=== PATIENT | female | born 1985 | race Caucasian/White ===

== ENCOUNTER 2018-12-25 04:21 | Emergency (ER) | payer OTHER ==
[~2018-12-25] VITALS: Ht 160 cm; Wt 86.2 kg
[~2018-12-25 04:21] MED LIST: NO TOMA MED.; PHENABID TAB1 TAB.SA
== END 2018-12-25 11:14 | disposition home or self-care (01) ==
LOC: ER 04:21
DX: K29.70 Gastritis, unspecified, without bleeding (principal); E86.0 Dehydration

== ENCOUNTER 2019-08-02 20:45 | Emergency (ER) | payer OTHER ==
[~2019-08-02] VITALS: Ht 160 cm; Wt 86.2 kg
[2019-08-03] MEDS ORDERED: DOLOGESIC 500-1 EACH PO (02:50)
== END 2019-08-03 03:11 | disposition home or self-care (01) ==
LOC: ER 20:45
DX: R20.2 Paresthesia of skin (principal); R51 Headache

== ENCOUNTER 2019-08-04 16:46 | Emergency (ER) | payer OTHER ==
[~2019-08-04] VITALS: Ht 160 cm; Wt 86.2 kg
[~2019-08-04 16:46] MED LIST changes: +DOLOGESIC 500-1 EACH PO
== END 2019-08-04 19:25 | disposition home or self-care (01) ==
LOC: ER 16:46
DX: R25.1 Tremor, unspecified (principal); R51 Headache; F06.4 Anxiety disorder due to known physiological condition

== ENCOUNTER 2019-10-15 17:03 | Emergency (ER) | payer OTHER ==
[~2019-10-15] VITALS: Ht 160 cm; Wt 86.2 kg
[2019-10-15] MEDS ORDERED: VISTARIL25 MG (17:22)
[2019-10-15] MEDS ORDERED: TOPROL XL25 M1 (17:22)
== END 2019-10-15 20:38 | disposition home or self-care (01) ==
LOC: ER 17:03
DX: M62.838 Other muscle spasm (principal)

== ENCOUNTER 2022-09-11 17:34 | Emergency (ER) | payer OTHER ==
[~2022-09-11] VITALS: Ht 160 cm; Wt 92.5 kg
[~2022-09-11 17:34] MED LIST changes: +TOPROL XL25 M1; +VISTARIL25 MG
== END 2022-09-11 21:42 | disposition home or self-care (01) ==
LOC: ER 17:34
DX: K21.9 Gastro-esophageal reflux disease without esophagitis (principal); K29.70 Gastritis, unspecified, without bleeding; Z88.0 Allergy status to penicillin; Z20.822 Contact with and (suspected) exposure to COVID-19

== ENCOUNTER 2022-09-15 07:21 | Emergency (ER) | payer OTHER ==
[~2022-09-15] VITALS: Ht 160 cm; Wt 92.5 kg
== END 2022-09-15 14:37 | disposition home or self-care (01) ==
LOC: ER 07:21
DX: R10.9 Unspecified abdominal pain (principal); Z88.0 Allergy status to penicillin; I10 Essential (primary) hypertension; K80.20 Calculus of gallbladder without cholecystitis without obstruction; K76.0 Fatty (change of) liver, not elsewhere classified

== ENCOUNTER 2022-11-03 10:41 | Outpatient (CLI) | payer OTHER | END 2022-11-03 10:42 | disposition home or self-care (01) | LOC: LAB 10:41 | DX: Z01.811 Encounter for preprocedural respiratory examination (principal); E66.01 Morbid (severe) obesity due to excess calories ==

== ENCOUNTER 2022-12-03 21:40 | Inpatient (IN) | payer OTHER ==
[~2022-12-03] VITALS: Ht 160 cm; Wt 94.8 kg
[2022-12-03] MEDS ORDERED: SPRINTEC 28 DA1 EACH PO (22:49)
[2022-12-03] MEDS ORDERED: HYOSCYAMINE0.125 MG PO (22:49)
== END 2022-12-06 11:26 | disposition home or self-care (01) | DRG 419 ==
LOC: ER 21:40 → SURH 12-04 14:17
PROVIDERS: Surgery; ADMIT Internal Medicine; ATTEND Internal Medicine
PROC: BF37ZZZ Magnetic Resonance Imaging (MRI) of Pancreas (ICD-10-PCS; 2022-12-04)
PROC: BW40ZZZ Ultrasonography of Abdomen (ICD-10-PCS; 2022-12-04)
PROC: 0FT44ZZ Resection of Gallbladder, Percutaneous Endoscopic Approach (ICD-10-PCS; principal; 2022-12-05 14:00)
DX: K80.62 Calculus of gallbladder and bile duct with acute cholecystitis without obstruction (principal)

== ENCOUNTER 2023-03-15 15:12 | Emergency (ER) | payer OTHER ==
[~2023-03-15] VITALS: Ht 160 cm; Wt 94.8 kg
[~2023-03-15 15:12] MED LIST changes: +HYOSCYAMINE0.125 MG PO; +SPRINTEC 28 DA1 EACH PO
[2023-03-15] MEDS ORDERED: LEXAPRO5 MG (15:56)
== END 2023-03-15 18:04 | disposition home or self-care (01) ==
LOC: ER 15:12
DX: M54.89 Other dorsalgia (principal); Z20.822 Contact with and (suspected) exposure to COVID-19; Z88.0 Allergy status to penicillin

== ENCOUNTER 2024-11-26 15:32 | Emergency (ER) | payer OTHER ==
[~2024-11-26] VITALS: Ht 162.6 cm; Wt 63.5 kg
[~2024-11-26 15:32] MED LIST changes: +LEXAPRO5 MG
[2024-11-26] MEDS ORDERED: LACTOBACILLUS ACIDOPHILUS 1 CAP CAP PO STA (16:37)
[2024-11-26] MEDS ORDERED: LACTOBACILLUS ACIDOPHILUS 1 CAP CAP PO ONE (16:46)
[2024-11-26 16:54] LABS: HEMATOCRIT 42.2 % (36.0-45.00); HEMOGLOBIN 14.1 g/dL (12.0-15.00); MEAN CELL VOLUME 92.9 fL (80.00-100.00); MEAN CORPUSCULAR HEMOGLOBIN 31.1 pg (27.00-32.0); MEAN CORPUSCULAR HGB CONC 33.5 g/dl (32.0-36.0); PLATELET COUNT 207 K/uL (150-450); RED BLOOD COUNT 4.54 M/uL (4.00-6.00); RED CELL DISTRIBUTION WIDTH 12.5 % (11.5-14.5)
[2024-11-26] MEDS ORDERED: DEXAMETHASONE SODIUM PHOSPHATE 4 MG/ML VIAL ONE (18:17)
[2024-11-26] MEDS ORDERED: KETOROLAC TROMETHAMINE 30 MG VIAL ONE (18:17)
[2024-11-26] MEDS ORDERED: ZITHROMAX500 MG PO (18:20)
== END 2024-11-26 18:25 | disposition home or self-care (01) ==
LOC: ER 15:34
DX: J06.9 Acute upper respiratory infection, unspecified (principal); Z88.0 Allergy status to penicillin; Z20.822 Contact with and (suspected) exposure to COVID-19

== ENCOUNTER 2025-06-29 09:15 | Inpatient (IN) | payer OTHER ==
[~2025-06-29] VITALS: Ht 160 cm; Wt 69.9 kg
[~2025-06-29 09:15] MED LIST changes: +ZITHROMAX500 MG PO
[2025-06-29] MEDS ORDERED: WELLBUTRIN SR100 MG PO (11:01)
[2025-06-29] MEDS ORDERED: CLONAZEPAM1 MG PO (11:03)
[2025-06-29] MEDS ORDERED: RESTORIL30 M1 PO (11:04)
[2025-06-29] MEDS ORDERED: TRI-SPRINTEC T1 EACH PO (11:04)
[2025-06-29] MEDS ORDERED: PROTONIX20 MG PO (11:04)
[2025-06-29 11:24] VITALS: BP 135/84
[2025-06-29 11:35] LABS: BASO % 0.3 % (0.1-1.2); EOS # 0.04 (0.04-0.54); EOS % 0.6 % (0.7-7.0); LYMPH # 1.88 (1.18-3.74); LYMPH % 27.9 % (19.3-53.1); MEAN PLATELET VOLUME 9.90 fl (9.4-12.4); MONO # 0.50 (0.24-0.82); MONO % 7.4 % (4.7-12.5); NEUT # 4.30 (1.56-6.13); NEUT % 63.7 % (34.0-71.1); RED CELL DISTRIBUTION WIDTH 11.6 % (11.6-14.4)
[2025-06-29 12:27] LABS: INR 1.02
[2025-06-29 12:47] LABS: ALT/SGPT 31 U/L (12-78); AST/SGOT 12 U/L (15-37); BILIRUBIN TOTAL 0.50 mg/dL (0.3-1.2); BUN CREA RATIO 12 (7.0-25.0); CREATININE SERUM 0.78 mg/dL (0.55-1.02); GFR 81.39; GLOBULINA 3.5 G/DL (2.4-3.5); GLUCOSE FASTING 114 mg/dL (65-100); OSMOLALITY SERUM 279 MOSM/KG (275-295)
[2025-06-29 12:48] LABS: HCG QUANTITATIVE < 1 mUI/mL (1-3)
[2025-06-29 12:53] LABS: URINE APPEARANCE Clear; URINE BILIRRUBIN Negative (NEGATIVE); URINE COLOR Dark Yellow; URINE GLUCOSE Negative (NEGATIVE); URINE KETONE Negative (NEGATIVE); URINE LEUKOCYTE Small; URINE NITRATE Negative; URINE PROTEIN 30 (NEGATIVE); URINE UROBILINOGEN 1.0 E.U./dl
[2025-06-29 12:57] LABS: URINE BACTERIA 2410.8 uL (0.0-1933); URINE EPITHELIAL CELLS 64.7 uL (0.0-38.8); URINE RBC 64.3 uL (0.0-20.8); URINE WBC 59.5 uL (0.0-23.2)
[2025-06-29 13:35] LABS: URINE BLOOD Trace; URINE CAST 0.58 uL (0.0-1.40)
[2025-07-05] MEDS ORDERED: POVIDONE-IODINE 118 ML BOTT TOP ONE (09:00)
[2025-07-05] MEDS ORDERED: CEFAZOLIN SODIUM 1,000 MG VIAL IV ONE (09:00)
[2025-07-05] MEDS ORDERED: METRONIDAZOLE/SODIUM CHLORIDE 500 MG/100 ML PIGGYBACK IV ONE (09:00)
[2025-07-05] MEDS ORDERED: KETOROLAC TROMETHAMINE 30 MG VIAL IV SCH (13:06)
[2025-07-05] MEDS ORDERED: GABAPENTIN 300 MG CAPSULE PO SCH (13:07)
[2025-07-05] MEDS ORDERED: ACETAMINOPHEN 500 MG GEL..CAP PO SCH (13:07)
[2025-07-05] MEDS ORDERED: RINGERS SOLUTION,LACTATED 1,000 ML IV SCH (13:15)
[2025-07-05] MEDS ORDERED: KETOROLAC TROMETHAMINE 30 MG VIAL IV ONE (13:20)
[2025-07-05 14:07] VITALS: BP 137/85
[2025-07-05 16:41] VITALS: BP 150/80
[2025-07-05 20:36] VITALS: BP 107/73
[2025-07-06 02:31] VITALS: BP 115/79
[2025-07-06 06:54] LABS: BASO % 0.3 % (0.1-1.2); EOS # 0.11 (0.04-0.54); EOS % 1.2 % (0.7-7.0); LYMPH # 2.78 (1.18-3.74); LYMPH % 29.5 % (19.3-53.1); MEAN PLATELET VOLUME 10.40 fl (9.4-12.4); MONO # 0.69 (0.24-0.82); MONO % 7.3 % (4.7-12.5); NEUT # 5.79 (1.56-6.13); NEUT % 61.5 % (34.0-71.1); RED CELL DISTRIBUTION WIDTH 11.3 % (11.6-14.4)
[2025-07-06 08:00] VITALS: BP 129/80
== END 2025-07-06 11:18 | disposition home or self-care (01) | DRG 743 ==
LOC: O/R 07-05 06:00 → SURH 07-05 08:15 → OB/GYN 07-05 13:41
PROVIDERS: ADMIT Student in an Organized Health Care Education/Training Program; ATTEND Student in an Organized Health Care Education/Training Program
PROC: 0UT74ZZ Resection of Bilateral Fallopian Tubes, Percutaneous Endoscopic Approach (ICD-10-PCS; 2025-07-05)
PROC: 0TN74ZZ Release Left Ureter, Percutaneous Endoscopic Approach (ICD-10-PCS; 2025-07-05)
PROC: 0TJB8ZZ Inspection of Bladder, Via Natural or Artificial Opening Endoscopic (ICD-10-PCS; 2025-07-05)
PROC: 0WBH4ZZ Excision of Retroperitoneum, Percutaneous Endoscopic Approach (ICD-10-PCS; 2025-07-05)
PROC: 0UT94ZZ Resection of Uterus, Percutaneous Endoscopic Approach (ICD-10-PCS; principal; 2025-07-05 08:15)
DX: D25.1 Intramural leiomyoma of uterus (principal); D25.2 Subserosal leiomyoma of uterus; N72 Inflammatory disease of cervix uteri; N80.9 Endometriosis, unspecified